=== PATIENT | female | born 1940 | race Caucasian/White ===

== ENCOUNTER 2016-07-10 14:16 | Emergency (ER) | payer MEDICARE ==
[~2016-07-10] VITALS: Ht 162.6 cm; Wt 70.5 kg
[~2016-07-10 14:16] MED LIST: DIAZ5TAB4 PO; ENOX30SY4 SQ; METO-99 PO; OXYC5TAB3 PO; VERA360C2 PO
[2016-07-10] MEDS ORDERED: OMEP-110 PO (14:36)
[2016-07-10] MEDS ORDERED: CHOL20003 PO (14:36)
[2016-07-10] MEDS ORDERED: DOCU100C8 PO (14:36)
[2016-07-10] MEDS ORDERED: ATEN100T PO (14:36)
[2016-07-10] MEDS ORDERED: LISI-167 PO (14:36)
[2016-07-10] MEDS ORDERED: CEFTRIAXONE 1,000 MG IM ONE (16:00)
[2016-07-10] MEDS ORDERED: SULFAMETH./TRIMETHOPRIM DS 800MG/160MG TABLET PO ONE (16:00)
[2016-07-10] MEDS ORDERED: CEFTRIAXONE 1,000 MG ONE (16:30)
[2016-07-10] MEDS ORDERED: SULFAMETH./TRIMETHOPRIM DS 800MG/160MG TABLET ONE (16:30)
[2016-07-10] MEDS ORDERED: LIDOCAINE 1%, 20ML ONE (16:30)
[2016-07-10 17:15] VITALS: BP 155/68
== END 2016-07-10 17:50 | disposition home or self-care (01) ==
LOC: ED 16:23
DX: L03.115 Cellulitis of right lower limb (principal); I10 Essential (primary) hypertension
CPT/HCPCS: 93971; 96372; 99284; J0696

== ENCOUNTER 2016-08-24 08:59 | Emergency (ER) | payer MEDICARE ==
[~2016-08-24] VITALS: Ht 162.6 cm; Wt 60.0 kg
[~2016-08-24 08:59] MED LIST changes: +ATEN100T PO; +CHOL20003 PO; +DOCU100C8 PO; +LISI-167 PO; +OMEP-110 PO
[2016-08-24] MEDS ORDERED: POTA10CA PO (09:52)
[2016-08-24] MEDS ORDERED: FURO-93 PO (09:52)
[2016-08-24] MEDS ORDERED: VERA180T56 PO (09:52)
[2016-08-24] MEDS ORDERED: SODIUM CHLORIDE FLUSH 10ML SYR IVF ONE (10:00)
[2016-08-24 10:22] LABS: ASPARTATE AMINO TRANSFERASE 16 U/L (15-37); BLOOD UREA NITROGEN 11 mg/dL (7-18)
[2016-08-24] MEDS ORDERED: MIDAZOLAM 1 MG/ML, 5ML ONE (11:26)
[2016-08-24] MEDS ORDERED: FENTANYL PF 100 MCG/2ML ONE (11:26)
[2016-08-24] MEDS ORDERED: PROPOFOL 10 MG/ML, 20ML IVPush ONE (11:30)
[2016-08-24] MEDS ORDERED: KETAMINE 100 MG/ML, 5ML IV ONE (11:30)
[2016-08-24] MEDS ORDERED: KETAMINE 10 MG/ML, 20ML ONE (11:42)
[2016-08-24] MEDS ORDERED: PROPOFOL 10 MG/ML, 20ML ONE (11:42)
[2016-08-24 13:34] VITALS: BP 130/68
== END 2016-08-24 13:35 | disposition home or self-care (01) ==
LOC: ED 13:10
DX: T18.128A Food in esophagus causing other injury, initial encounter (principal); K20.8 Other esophagitis; K21.9 Gastro-esophageal reflux disease without esophagitis; Y93.89 Activity, other specified; Y92.89 Other specified places as the place of occurrence of the external cause; Y99.8 Other external cause status
CPT/HCPCS: 36415; 71010; 74220; 80053; 85025; 99152; J2250; J3010

== ENCOUNTER 2016-11-17 22:11 | Inpatient (IN) | payer MEDICARE, OTHER ==
[~2016-11-17] VITALS: Ht 162.6 cm; Wt 60.7 kg
[~2016-11-17 22:11] MED LIST changes: +CHOL2000 PO; -CHOL20003 PO; +FURO-93 PO; +POTA10CA PO; +VERA180T56 PO
[2016-11-17] MEDS ORDERED: PANTOPRAZOLE 80 MG in SODIUM CHLORIDE 0.9% 50 ML IVPB ONE (22:49)
[2016-11-17] MEDS ORDERED: PANTOPRAZOLE 80 MG in SODIUM CHLORIDE 0.9% 100 ML IV SCH (22:49)
[2016-11-17] MEDS ORDERED: SODIUM CHLORIDE FLUSH 10ML SYR IVF ONE (23:00)
[2016-11-17] MEDS ORDERED: SODIUM CHLORIDE 0.9% 1,000ML IVBOLUS ONE (23:00)
[2016-11-17] MEDS ORDERED: ASPI-515 PO (23:14)
[2016-11-17 23:15] LABS: HEMATOCRIT 38.9 % (34.6-47.8); WHITE BLOOD COUNT 9.9 x10^3/uL (3.4-10)
[2016-11-17 23:21] LABS: ASPARTATE AMINO TRANSFERASE 17 U/L (15-37); BLOOD UREA NITROGEN 6 mg/dL (7-18)
[2016-11-18] MEDS ORDERED: morphine SULFATE 10 MG/ML, 1ML IVPush PRN
[2016-11-18] MEDS ORDERED: HYDROcodone/APAP 5/325 TABLET PO PRN
[2016-11-18] MEDS ORDERED: PROMETHAZINE 25 MG/ML, 1ML IM PRN
[2016-11-18] MEDS ORDERED: ONDANSETRON 2MG/ML, 2ML IVPush PRN
[2016-11-18] MEDS ORDERED: TRAZODONE 50MG TABLET PO PRN
[2016-11-18] MEDS ORDERED: ACETAMINOPHEN 325 MG TABLET PO PRN
[2016-11-18] MEDS: SODIUM CHLORIDE 0.9% 1,000 ML IV SCH ×2 (03:20→12:00)
[2016-11-18 03:27] VITALS: BP 160/78
[2016-11-18 06:58] LABS: HEMOGLOBIN 12.3 g/dL (11.7-16.4); WHITE BLOOD COUNT 6.2 x10^3/uL (3.4-10)
[2016-11-18 07:05] LABS: BLOOD UREA NITROGEN 4 mg/dL (7-18)
[2016-11-18 07:13] VITALS: BP 169/77
[2016-11-18] MEDS ORDERED: ATENOLOL 100 MG TABLET PO SCH (09:00)
[2016-11-18] MEDS ORDERED: LISINOPRIL 10 MG TABLET PO SCH (09:00)
[2016-11-18] MEDS ORDERED: VERAPAMIL ER 180MG TABLET.ER PO SCH (09:00)
[2016-11-18 09:15] LABS: POTASSIUM,URINE RANDOM 20 mmol/L
[2016-11-18] MEDS: PANTOPRAZOLE 80 MG in SODIUM CHLORIDE 0.9% 100 ML IV SCH ×2 (11:21)
[2016-11-18] MEDS ORDERED: ENALAPRILAT 1.25 MG/ML, 2ML IV PRN (11:30)
[2016-11-18 12:38] VITALS: BP 159/64
== END 2016-11-18 15:08 | disposition home or self-care (01) | DRG 378 ==
LOC: ED 23:29 → EDIP 23:56 → 5SO 11-18 02:39 → DCLOUNGE 11-18 15:02
DX: K92.2 Gastrointestinal hemorrhage, unspecified (principal); E87.1 Hypo-osmolality and hyponatremia; E87.2 Acidosis; E86.0 Dehydration; D69.6 Thrombocytopenia, unspecified; D75.89 Other specified diseases of blood and blood-forming organs; F41.9 Anxiety disorder, unspecified; I11.9 Hypertensive heart disease without heart failure; K21.9 Gastro-esophageal reflux disease without esophagitis; K22.2 Esophageal obstruction; K59.00 Constipation, unspecified; Z79.899 Other long term (current) drug therapy; D50.9 Iron deficiency anemia, unspecified; K29.70 Gastritis, unspecified, without bleeding
CPT/HCPCS: 36415; 80048; 80053; 81003; 82436; 83930; 83935; 84133; 84295; 84300; 85018; 85025; 85610; 85730; 86677; 86850; 86900; 96365; C9113; J7030

== ENCOUNTER → 2017-10-19 | Outpatient (CLI) | payer MEDICARE ==
[~2017-10-19] MED LIST changes: +ASPI-515 PO; +DOCU100C33 PO; -DOCU100C8 PO
== END | disposition home or self-care (01) ==
LOC: CFH 14:02
PROVIDERS: ATTEND Orthopaedic Surgery
DX: S72.22XD Displaced subtrochanteric fracture of left femur, subsequent encounter for closed fracture with routine healing (principal); G89.29 Other chronic pain; X58.XXXD Exposure to other specified factors, subsequent encounter

== ENCOUNTER 2019-04-27 15:31 | Inpatient (IN) | payer MEDICARE ==
[~2019-04-27] VITALS: Ht 165.1 cm; Wt 65.5 kg
[~2019-04-27 15:31] MED LIST changes: -VERA180T56 PO; +VERA180T6 PO
--- NOTE | 2019-04-27 16:51 | NUR ---
URINE SAMPLE SENT TO LAB BY TRIAGE
[2019-04-27 16:59] LABS: MEAN CORPUSCULAR HEMOGLOBIN 34.4 pg (27.0-34.8); MEAN CORPUSCULAR VOLUME 101.2 fL (80-100); MEAN PLATELET VOLUME 7.8 fL (7.4-10.4); PLATELET COUNT 282 x10^3/uL (130-400); RED BLOOD COUNT 4.25 x10^6/uL (3.82-5.3); RED CELL DISTRIBUTION WIDTH 13.5 % (9.6-15.2)
[2019-04-27 17:08] LABS: CULTURE INDICATED? YES; MICROSCOPIC INDICATED
[2019-04-27 17:09] LABS: ALANINE AMINOTRANSFERASE 328 U/L (12-78); ALBUMIN 3.5 g/dL (3.4-5.0); ANION GAP 9 mmol/L (5-15); CALCIUM 8.8 mg/dL (8.5-10.1); CHLORIDE 99 mmol/L (98-107); CREATININE 1.08 mg/dL (0.55-1.02)
[2019-04-27 17:12] LABS: ALKALINE PHOSPHATASE 221 U/L (45-117); BILIRUBIN,TOTAL 2.7 mg/dL (0.2-1.0); TOTAL PROTEIN 7.3 g/dL (6.4-8.2)
[2019-04-27 17:13] LABS: MD YES
[2019-04-27 17:58] LABS: BAND#(MANUAL) 1.91 x10^3/uL; BANDS%(MANUAL) 29 % (0-7); LYMPH#(MANUAL) 0.13 x10^3/uL (1-3.4); LYMPHS% (MANUAL) 2 % (22-44); MONOS#(MANUAL) 0.26 x10^3/uL (0.3-2.7); MONOS% (MANUAL) 4 % (2-9); SEG#(MANUAL) 4.29 x10^3/uL (1.8-6.8); SEGS% (MANUAL) 65 % (42-75)
[2019-04-27 18:00] LABS: <PLATELET ESTIMATE> ADEQUATE; <PLT MORPHOLOGY> NORMAL PLT MORPH
[2019-04-27] MEDS ORDERED: SODIUM CHLORIDE FLUSH 10ML SYR IVF ONE (18:00)
--- NOTE | 2019-04-27 18:06 | NUR ---
US AT BEDSIDE
--- NOTE | 2019-04-27 18:26 | NUR ---
IV ESTABLISHED, AWAITING US RESULTS. PT RESTING IN [facility] WITH CALL LIGHT IN REACH.
--- NOTE | 2019-04-27 18:51 | NUR ---
REPORT FROM TEO CAICEDO
[2019-04-27] MEDS ORDERED: OMEP20TA62 PO (18:55)
[2019-04-27] MEDS ORDERED: SODIUM CHLORIDE 0.9% 1,000 ML IV ONE (19:01)
[2019-04-27] MEDS ORDERED: ONDANSETRON 2MG/ML, 2ML IVPush PRN (19:30)
[2019-04-27] MEDS ORDERED: SODIUM CHLORIDE FLUSH 10ML SYR IVF PRN (19:30)
[2019-04-27] MEDS ORDERED: morphine SULFATE 10 MG/ML, 1ML IVPush PRN (19:30)
--- NOTE | 2019-04-27 19:54 | NUR ---
PT RA SAT DOWN TO 87% PT PLACED ON 2L NC. SAT UP TO 94%
--- NOTE | 2019-04-27 20:00 | NUR ---
REPORT CALLED TO FLOOR RN, ALL QUESTIONS ADDRESSED ROOM READY SOON.
[2019-04-27] MEDS: VERAPAMIL ER 180MG TABLET.ER PO SCH (21:00)
[2019-04-27] MEDS: LACTATED RINGERS 1,000 ML IV SCH (21:34)
[2019-04-27 21:35] VITALS: BP 153/76
[2019-04-28 00:50] VITALS: BP_SYST 160
[2019-04-28] MEDS: LACTATED RINGERS 1,000 ML IV SCH ×3 (03:22→18:29)
[2019-04-28 05:06] LABS: ALBUMIN 2.9 g/dL (3.4-5.0); ANION GAP 8 mmol/L (5-15); CALCIUM 7.9 mg/dL (8.5-10.1); CHLORIDE 100 mmol/L (98-107)
[2019-04-28 05:09] LABS: ALANINE AMINOTRANSFERASE 340 U/L (12-78); ALKALINE PHOSPHATASE 166 U/L (45-117); BILIRUBIN,TOTAL 3.3 mg/dL (0.2-1.0); CREATININE 0.81 mg/dL (0.55-1.02); TOTAL PROTEIN 6.2 g/dL (6.4-8.2)
[2019-04-28 05:10] LABS: MEAN CORPUSCULAR HEMOGLOBIN 34.2 pg (27.0-34.8); MEAN CORPUSCULAR HGB CONC 33.4 g/dL (32.4-35.8); MEAN CORPUSCULAR VOLUME 102.5 fL (80-100); MEAN PLATELET VOLUME 7.4 fL (7.4-10.4); PLATELET COUNT 272 x10^3/uL (130-400); RED BLOOD COUNT 3.77 x10^6/uL (3.82-5.3); RED CELL DISTRIBUTION WIDTH 13.6 % (9.6-15.2)
[2019-04-28 05:55] LABS: MD YES
[2019-04-28 06:00] LABS: <PLATELET ESTIMATE> ADEQUATE; <PLT MORPHOLOGY> NORMAL PLT MORPH; BAND#(MANUAL) 3.81 x10^3/uL; BANDS%(MANUAL) 27 % (0-7); LYMPH#(MANUAL) 1.13 x10^3/uL (1-3.4); LYMPHS% (MANUAL) 8 % (22-44); METAMYELOCYTES# (MANUAL) 0.14 x10^3/uL (0-0); METAMYELOCYTES% (MANUAL) 1 % (0-1); MONOS#(MANUAL) 1.13 x10^3/uL (0.3-2.7); MONOS% (MANUAL) 8 % (2-9); SEGS% (MANUAL) 56 % (42-75)
[2019-04-28 07:24] VITALS: BP 153/78
[2019-04-28] MEDS: ATENOLOL 100 MG TABLET PO SCH (09:25)
[2019-04-28] MEDS: OMEPRAZOLE 20 MG CAPSULE.DR PO SCH (09:25)
[2019-04-28] MEDS: VERAPAMIL ER 180MG TABLET.ER PO SCH ×2 (09:26→19:51)
[2019-04-28] MEDS: BISACODYL 10 MG SUPP PR SCH (09:26)
[2019-04-28] MEDS ORDERED: BUPIVACAINE/PF-EPI 0.25% 1:200K ONE (11:11)
[2019-04-28] MEDS ORDERED: MIDAZOLAM 1 MG/ML, 2ML ONE (11:56)
[2019-04-28] MEDS ORDERED: FENTANYL PF 250 MCG/5ML ONE (11:56)
[2019-04-28] MEDS ORDERED: ROCURONIUM 10MG/ML,5ML ONE (11:57)
[2019-04-28] MEDS ORDERED: SUCCINYLCHOLINE 20 MG/ML, 10ML ONE (11:57)
[2019-04-28] MEDS ORDERED: CEFOTETAN 2 GM ONE (12:00)
[2019-04-28] MEDS ORDERED: BUPIVACAINE/PF-EPI 0.5% 1:200K INFIL ONE (12:14)
[2019-04-28] MEDS ORDERED: PROPOFOL 10 MG/ML, 20ML ONE (12:31)
[2019-04-28] MEDS ORDERED: ONDANSETRON 2MG/ML, 2ML ONE (12:31)
[2019-04-28] MEDS ORDERED: SUGAMMADEX 200 MG/2 ML IVPush ONE (12:31)
[2019-04-28] MEDS ORDERED: DEXAMETHASONE 4 MG/ML, 1ML ONE (12:31)
[2019-04-28] MEDS ORDERED: DIAZEPAM 5 MG/ML, 2ML IVPush PRN (13:00)
[2019-04-28] MEDS ORDERED: MIDAZOLAM 1 MG/ML, 2ML IV PRN (13:00)
[2019-04-28] MEDS ORDERED: FENTANYL PF 100 MCG/2ML IV PRN (13:00)
[2019-04-28] MEDS ORDERED: ALBUTEROL SULFATE 2.5 MG/3 ML NPPB PRN (13:00)
[2019-04-28] MEDS ORDERED: LABETALOL 5MG/ML, 20ML IV PRN (13:00)
[2019-04-28] MEDS ORDERED: PROMETHAZINE 12.5 MG SUPP PR PRN (13:00)
[2019-04-28] MEDS ORDERED: ONDANSETRON ODT 8 MG PO PRN (13:00)
[2019-04-28] MEDS ORDERED: PROMETHAZINE 25 MG/ML, 1ML IV PRN (13:00)
[2019-04-28] MEDS ORDERED: HALOPERIDOL 5 MG/ML IV PRN (13:00)
[2019-04-28] MEDS ORDERED: ONDANSETRON 2MG/ML, 2ML IV PRN (13:00)
[2019-04-28] MEDS ORDERED: hydrALAzine 20 MG/ML, 1ML IV PRN (13:00)
[2019-04-28] MEDS ORDERED: EPHEDRINE 50 MG/ML, 1ML IVPush PRN (13:00)
[2019-04-28] MEDS ORDERED: HYDROmorphone 2 MG/ML, 1ML IVPush PRN (13:00)
[2019-04-28] MEDS ORDERED: OXYcodone 5 MG/5 ML ORAL.SOL UDC PO PRN (13:00)
[2019-04-28] MEDS ORDERED: MEPERIDINE/PF 25MG/ML,1ML IVPush PRN (13:00)
[2019-04-28] MEDS ORDERED: ACETAMINOPHEN 325 MG TABLET PO PRN (13:00)
[2019-04-28 13:02] LABS: INTERNATIONAL NORMALIZED RATIO 1.21 (0.93-1.1); PROTHROMBIN TIME 12.8 Seconds (9.6-11.5)
[2019-04-28 13:55] VITALS: BP 148/77
[2019-04-28 19:19] VITALS: BP 154/78
[2019-04-29] MEDS: LACTATED RINGERS 1,000 ML IV SCH ×3 (00:05→10:41)
[2019-04-29 02:43] VITALS: BP 161/80
[2019-04-29 05:48] LABS: BASOPHILS # (AUTO) 0.01 x10^3/uL (0-0.1); BASOPHILS % (AUTO) 0 % (0-1); EOSINOPHILS % (AUTO) 0 % (1-7); LYMPHOCYTES # (AUTO) 0.58 x10^3/uL (1-3.4); LYMPHOCYTES % (AUTO) 4 % (22-44); MD NO; MEAN CORPUSCULAR HEMOGLOBIN 34.3 pg (27.0-34.8); MEAN CORPUSCULAR HGB CONC 33.2 g/dL (32.4-35.8); MEAN CORPUSCULAR VOLUME 103.2 fL (80-100); MEAN PLATELET VOLUME 8.5 fL (7.4-10.4); MONOCYTES # (AUTO) 0.59 x10^3/uL (0.2-0.8); MONOCYTES % (AUTO) 4 % (2-9); NEUTROPHILS # (AUTO) 13.46 x10^3/uL (1.8-6.8); NEUTROPHILS % (AUTO) 92 % (42-75); PLATELET COUNT 220 x10^3/uL (130-400); RED BLOOD COUNT 3.63 x10^6/uL (3.82-5.3); RED CELL DISTRIBUTION WIDTH 13.6 % (9.6-15.2)
[2019-04-29 05:58] LABS: CHLORIDE 103 mmol/L (98-107)
[2019-04-29 06:10] LABS: ALANINE AMINOTRANSFERASE 231 U/L (12-78); ALBUMIN 2.7 g/dL (3.4-5.0); ALKALINE PHOSPHATASE 134 U/L (45-117); ANION GAP 5 mmol/L (5-15); BILIRUBIN,TOTAL 1.4 mg/dL (0.2-1.0); CALCIUM 8.3 mg/dL (8.5-10.1); CREATININE 0.75 mg/dL (0.55-1.02); TOTAL PROTEIN 6.4 g/dL (6.4-8.2)
[2019-04-29 07:34] VITALS: BP 162/86
[2019-04-29] MEDS: VERAPAMIL ER 180MG TABLET.ER PO SCH (08:00)
[2019-04-29] MEDS: BISACODYL 10 MG SUPP PR SCH (08:01)
[2019-04-29] MEDS: OMEPRAZOLE 20 MG CAPSULE.DR PO SCH (08:01)
[2019-04-29] MEDS: ATENOLOL 100 MG TABLET PO SCH (08:01)
== END 2019-04-29 13:05 | disposition home or self-care (01) | DRG 417 ==
LOC: ED 18:10 → EDIP 19:01 → 3N 20:43 → DCLOUNGE 04-29 12:47
PROVIDERS: ADMIT Hospitalist; ATTEND Internal Medicine
PROC: 0FT44ZZ Resection of Gallbladder, Percutaneous Endoscopic Approach (ICD-10-PCS; principal; 2019-04-28 11:30)
DX: K80.20 Calculus of gallbladder without cholecystitis without obstruction (principal); K85.10 Biliary acute pancreatitis without necrosis or infection; E87.2 Acidosis; E87.1 Hypo-osmolality and hyponatremia; F10.288 Alcohol dependence with other alcohol-induced disorder; Q45.3 Other congenital malformations of pancreas and pancreatic duct; K70.10 Alcoholic hepatitis without ascites; D72.825 Bandemia; D75.89 Other specified diseases of blood and blood-forming organs; I10 Essential (primary) hypertension; Y90.9 Presence of alcohol in blood, level not specified; K59.00 Constipation, unspecified; K76.0 Fatty (change of) liver, not elsewhere classified; K82.8 Other specified diseases of gallbladder; Z80.3 Family history of malignant neoplasm of breast; K21.9 Gastro-esophageal reflux disease without esophagitis; Z79.899 Other long term (current) drug therapy
CPT/HCPCS: 36415; 71045; 74181; 76700; 80053; 80074; 81001; 82607; 83690; 83735; 84100; 85025; 85610; 87086; 88304; 93005; 99285; G0378; J1100; J2250; J2405; J2704; J3010; J0330; J3490; J7120